=== PATIENT | female | born 1945 | race Caucasian/White ===

== ENCOUNTER 2017-10-17 11:42 | Outpatient (CLI) | payer MEDICARE | END 2017-10-17 11:43 | disposition home or self-care (01) | LOC: BICMAMMO 11:42 | PROVIDERS: ATTEND Family Medicine | DX: Z12.31 Encounter for screening mammogram for malignant neoplasm of breast (principal); Z80.3 Family history of malignant neoplasm of breast | CPT/HCPCS: 77063; 77067 ==

== ENCOUNTER 2018-10-18 10:28 | Outpatient (CLI) | payer MEDICARE | END 2018-10-18 10:29 | disposition home or self-care (01) | LOC: BICMAMMO 10:28 | PROVIDERS: ATTEND Family Medicine | DX: Z12.31 Encounter for screening mammogram for malignant neoplasm of breast (principal); R92.1 Mammographic calcification found on diagnostic imaging of breast; Z80.3 Family history of malignant neoplasm of breast | CPT/HCPCS: 77063; 77067 ==

== ENCOUNTER 2019-10-04 08:58 | Outpatient (CLI) | payer MEDICARE ==
[2019-10-04 14:24] LABS: INR-International Normal Ratio 0.9; Prothrombin Time 12.5 SEC (12.0-14.7)
[2019-10-04 14:34] LABS: Bacteria/HPF None Seen HPF (None Seen); Bilirubin 3+ (Negative); Blood, Urine Negative (Negative); Clarity Clear (Clear); Glucose, Urine (Dipstick) Normal (Negative); Leukocyte Negative Leu/uL (Negative); Nitrite Negative (Negative); Protein, Urine (Dipstick) Negative (Neg-Trace); RBC/HPF 0-3 HPF (0-3); Squamous Epithelial 0-3 HPF (0-3); Urobilinogen Normal mg/dL (Less than 2); WBC/HPF 0-3 HPF (0-3)
[2019-10-04 14:36] LABS: Anion Gap 12 mmol/L (10-20); BUN (Urea Nitrogen) 14 mg/dL (9.8-20.1); Calc. Creatinine Clearance 0 mL/min (70-130); Calcium 9.4 mg/dL (7.8-10.44); Carbon Dioxide 24 mmol/L (23-31); Chloride 107 mmol/L (98-107); Estimated GFR-MDRD 55; Glucose 98 mg/dL (83-110); Potassium 4.1 mmol/L (3.5-5.1); Sodium 139 mmol/L (136-145)
--- NOTE | 2019-10-04 16:58 | EKG ---
Test Reason : Blood Pressure : / mmHG Vent. Rate : 058 BPM Atrial Rate : 058 BPM P-R Int : 162 ms QRS Dur : 102 ms QT Int : 454 ms P-R-T Axes : 048 020 077 degrees QTc Int : 445 ms Sinus bradycardia Otherwise normal ECG When compared with ECG of 07-SEP-2016 11:07, No significant change was found Confirmed by DR. Sana CHANG (3) on 10/04/2019 4:58:07 PM Referred By: TERESA Confirmed By:DR. Sana CHANG
== END 2019-10-04 08:59 | disposition home or self-care (01) ==
LOC: LABBT 08:58
PROVIDERS: ATTEND Orthopaedic Surgery
DX: Z01.818 Encounter for other preprocedural examination (principal); M17.11 Unilateral primary osteoarthritis, right knee
CPT/HCPCS: 80048; 81001; 85025; 85610; 87081; 93005; 93010

== ENCOUNTER 2019-10-16 05:33 | Day surgery (SDC) | payer MEDICARE ==
[2019-10-04 12:18] VITALS: BMI 31.7
[2019-10-16] MEDS ORDERED: Clindamycin/D5W 600 mg/50 ml Premix Bag ONE (06:23)
[2019-10-16] MEDS ORDERED: Levofloxacin 500 mg/D5W 100 ml Premix Bag ONE (06:23)
[2019-10-16] MEDS ORDERED: Tranexamic Acid 1,000 MG/10 ML VIAL ONE (06:23)
[2019-10-16] MEDS ORDERED: Sodium Chloride 0.9% 100 ML ONE (06:23)
[2019-10-16] MEDS ORDERED: Vancomycin 1.5 GRAM/300 ML BAG 1.5 GM/300 ML BAG ONE (06:23)
[2019-10-16] MEDS ORDERED: Fentanyl 100 MCG/2 ML VIAL ONE ×5 (06:28→10:17)
[2019-10-16] MEDS ORDERED: Midazolam HCl 2 mg/2 ml Vial ONE (06:29)
[2019-10-16 06:43] LABS: #Eosinphils 0.1 thou/uL (0.0-0.7); #Lymphocytes 1.7 thou/uL (1.20-3.40); #Monocytes 0.6 thou/uL (0.11-0.59); #Neutrophils 4.2 thou/uL (1.40-6.50); %Basophils 0.6 % (0.0-1.0); %Eosinophils 1.2 % (0.0-10.0); %Lymphocytes 25.4 % (21.0-51.0); %Monocytes 9.6 % (0.0-10.0); %Neutrophils 63.2 % (42.0-75.0); Hemoglobin 13.7 g/dL (12.0-16.0); Mean Corpuscular HGB CONC 32.6 g/dL (32.0-36.0); Mean Corpuscular Hemoglobin 28.3 pg (27.0-31.0); Mean Corpuscular Volume 86.8 fL (78.0-98.0); Mean Platelet Volume 7.3 fL (7.4-10.4); Platelet Count 249 thou/uL (130-400); RBC Distribution Width 13.6 % (11.5-14.5); Red Blood Cell (RBC) Count 4.83 mill/uL (4.20-5.40); White Blood Cell (WBC) Count 6.6 thou/uL (4.8-10.8)
[2019-10-16] MEDS ORDERED: Bupivacaine 0.25% HCL 30 ML VIAL ONE ×2 (06:46)
[2019-10-16] MEDS ORDERED: Ropivacaine HCl/PF 250 ML in Premix Bag 1 BAG NERVE BLCK SCH (07:22)
[2019-10-16] MEDS ORDERED: Ondansetron PF 4 MG/2 ML Vial IVP PRN (07:22)
[2019-10-16] MEDS ORDERED: HYDROcodone/Acetaminophen 10/325 mg Tablet PO PRN (07:22)
[2019-10-16] MEDS ORDERED: Zolpidem Tartrate 5 MG TAB PO PRN (07:22)
[2019-10-16] MEDS ORDERED: Acetaminophen 325 MG TAB PO PRN (07:25)
[2019-10-16] MEDS ORDERED: Fentanyl 100 MCG/2 ML VIAL SLOW IVP PRN (07:26)
[2019-10-16] MEDS ORDERED: PROPOFOL 200 MG/20 ML VIAL ONE (09:21)
[2019-10-16] MEDS ORDERED: ePHEDrine/0.9% NaCl/PF SYRINGE 50 mg/10 ml ONE (09:21)
[2019-10-16] MEDS ORDERED: Lidocaine 1% PF 5 ML VIAL ONE (09:21)
[2019-10-16] MEDS ORDERED: Bupivacaine HCl 0.5%/Epinephrine 1:200,000/PF 30 ml Vial ONE (09:21)
[2019-10-16] MEDS ORDERED: Ondansetron PF 4 MG/2 ML Vial ONE (09:21)
[2019-10-16] MEDS ORDERED: Ropivacaine 0.2% HCl/PF (40 MG/20 ML VIAL) ONE (09:21)
[2019-10-16] MEDS ORDERED: Ketorolac Tromethamine 30 MG/ML VIAL ONE (09:24)
--- NOTE | 2019-10-16 09:40 | RAD ---
2 views of the right knee: 10/16/2019 COMPARISON: None HISTORY: Arthroplasty FINDINGS: Postoperative gas and fluid is noted anteriorly. The patient is status post total knee arth roplasty. Femoral and tibial components demonstrate no evidence for hardware complication. Postoperative changes are noted involving the posterior aspect of the right patella. IMPRESSION: Radiographic evidence of recent right total knee arthroplasty.
[2019-10-16] MEDS ORDERED: diphenhydrAMINE 25 MG CAP PO PRN (10:19)
[2019-10-16] MEDS ORDERED: Ketorolac Tromethamine 30 MG/ML VIAL IVP SCH (12:00)
[2019-10-16] MEDS: HYDROcodone/Acetaminophen 10/325 mg Tablet PO PRN ×2 (12:09→17:44)
[2019-10-16] MEDS ORDERED: CLOTRIMAZOLE TOP PRN (12:16)
[2019-10-16] MEDS ORDERED: ZINC TOP PRN (12:16)
[2019-10-16] MEDS ORDERED: BETAMETH DIP TOP PRN (12:16)
[2019-10-16] MEDS: Sodium Chloride 0.9% 1,000 ML IV SCH ×2 (12:17→21:55)
--- NOTE | 2019-10-16 12:41 | HP ---
CHIEF COMPLAINT: Right knee pain. HISTORY OF PRESENT ILLNESS: Ms. Vaz is a 73-year-old female, who presents for right total knee arthroplasty. The patient has a previous history of conservative management with injections, discussed weight reduction, anti-inflammatories. She is 6 weeks from previous knee injection. The patient continues to have pain, limits her ability to walk. The patient desired to have a right total knee arthroplasty. PAST MEDICAL HISTORY: Includes cystitis, cholesterol, high blood pressure, arthritis, ulnar dystrophy, chronic pain, fibromyalgia, hiatal hernia, diverticulitis, coronary artery disease. PAST SURGICAL HISTORY: Appendectomy, cholecystectomy, hysterectomy surgery, colonoscopy, bladder surgery, left pneumothorax, previous cardiac catheterization, stents x2, by Dr. Gregory. ALLERGIES: INCLUDE PENICILLIN, ATORVASTATIN, CIPROFLOXACIN, DRONEDARONE, METRONIDAZOLE, PREDNISONE, ROSUVASTATIN, TRAMADOL. MEDICATIONS: Include; 1. Alirocumab. 2. Amlodipine. 3. Aspirin. 4. Calcium carbonate. 5. Simethicone. 6. Clotrimazole/Betameth [place]. 7. Dexilant. 8. Estradiol. 9. Etodolac. 10. Hydrocodone. 11. Lidocaine patches. 12. Metoprolol. 13. Myrbetriq. 14. Nystatin/Triamcin. 15. Pentosan. 16. Trazodone. 17. Trazodone. SOCIAL HISTORY: The patient is a former smoker, stopped in 1989. Occasional alcohol drinker. The patient is currently retired. PHYSICAL EXAMINATION: GENERAL: Alert and oriented female, in no acute distress, resting comfortably in bed. EXTREMITIES: The patient's right lower extremity, 0 to 120, neurovascularly intact, brisk cap refill retropatellar crepitus, mediolateral pain. DIAGNOSTIC STUDIES: X-ray showed retropatellar osteophytosis with varus angulation. She does have right knee osteoarthritis. ASSESSMENT AND PLAN: The patient will be taken to the operating room for right total knee arthroplasty. The patient will receive preoperative antibiotics, will be n.p.o., will receive TXA. Discussed risks and benefits of surgery, pain, scar, bleeding, infection, damage to vital structures, decreased range of motion and strength, need for further surgeries, continued pain despite surgical intervention, loss of life or limb. The patient understood the risks and benefits and elected to proceed, will be taken to the operative suite. Job ID: [id number] [email or web address]
--- NOTE | 2019-10-16 12:49 | OP ---
DATE OF PROCEDURE: 10/16/2019 PREOPERATIVE DIAGNOSIS: Right knee osteoarthritis. POSTOPERATIVE DIAGNOSIS: Right knee osteoarthritis. PROCEDURE PERFORMED: Right total knee arthroplasty. SOCIAL MEDIA MARKETING MANAGER: Joie. ANESTHESIOLOGIST: Dr. Lincoln. ANESTHESIA: The patient received LMA with adductor canal, single shot sciatic. ESTIMATED BLOOD LOSS: 100 mL. TOURNIQUET TIME: 75 minutes at 300 mmHg. The patient received TXA 1 g, Ancef 2 g, vancomycin 1.5 g. The patient had Chika Triathlon size 3 tibial base plate, A29 asymmetric patella, X3 tibial 9 mm CS poly insert and CR size 4 retaining femur. COMPLICATIONS: None. HISTORY OF PRESENT ILLNESS: Ms. Vaz is a 73-year-old female with right knee pain for multiple years. The patient has failed conservative measures including injections, anti-inflammatories, continued pain despite conservative management. I discussed with the patient's the risks and benefits of right total knee arthroplasty to include pain, scar, bleeding, infection, damage to vital structures, decreased range of motion and strength, fracture below or above the stem, need for further surgeries, loss of life or limb. The patient understood the risks and benefits of the procedure and elected to proceed. DESCRIPTION OF PROCEDURE: Time-out was performed designating the patient's right lower extremity as the operative site based on site, consents, marking. After time-out, the patient's right lower extremity was prepped and draped in sterile fashion. After time-out was performed, the patient's right extremity had tourniquet brought up and left up for 75 minutes. Anterior midline approach, medial patellar arthrotomy was performed. We everted the patella, excised the fat pad and did our medial soft tissue release, after everting the patella completely and flexing the knee, we pinned the femur, cut it at 10, 10, 5 degrees anterior slope, 0 degrees varus valgus. We removed the osteophytes and moved to the tibia. Pinned our guide measured a 4 and cut the chamfer and anterior/posterior cuts for a size 4. We had released ACL, placed our retractors in position pinned our tibial marker, mapped and cut in 3, 5, and 4 degrees of posterior slope, removed osteophytes, placed lamina silk screen printer helper, removed the medial and lateral menisci, removed osteophytes, decompressed the PCL and ACL. We then pinned our tibial tray into position, medializing it and lateralizing femur. The patient was slightly rotationally off based on our previous chamfer cuts and our block cuts, therefore, we floated the tibia, which we pinned into position. Once happy with the alignment of the tibia, overall position of the implants that we pinned into position, had good flexion-extension arc, good varus-valgus and anterior-posterior drawer, mid flexion stability, with a 9 poly , we then everted the patella, cut it down from about 24 down to 13 and placed A29 patella, which tracked, everted, drilled our lugs for femur, cut our keel for tibia, removed all implants, washed the joint and rasped in posteromedial aspect, it was just a little tight in flexion. Overall, I liked tracking and alignment, and we removed all the implants, washed, cemented our tibia, placed our poly, after removing our excess cement, cemented our femur, removed excess cement, extended the femur, cemented our patella, removed excess cement, brought the knee back into flexion, washed, cleaned out all the joint to ensure there was no other particulate debris, washed the joint out, went back and closed the arthrotomy with #2-2 Stratafix and glue. The patient will be weightbearing as tolerated. She will be followed up in- house, she will follow [facility] protocol. Job ID: [id number] [facility]
[2019-10-16] MEDS: Ketorolac Tromethamine 30 MG/ML VIAL IVP SCH ×2 (15:34→21:38)
[2019-10-16] MEDS: CEFAZOLIN 2 GM in Premix Bag 1 BAG IVPB SCH ×2 (15:37→21:38)
[2019-10-16] MEDS ORDERED: Vancomycin 1.5 GRAM/300 ML BAG 1.5 GM in Premix Bag 1 BAG IVPB SCH (18:00)
[2019-10-16] MEDS ORDERED: Nystatin/Triamcinolone Cream 15 GM TUBE TOP SCH ×2 (21:00)
[2019-10-16] MEDS: Amlodipine 10 MG TAB PO SCH (21:37)
[2019-10-16] MEDS: traZODone HCl 150 MG TAB PO SCH (21:37)
[2019-10-17] MEDS: Ketorolac Tromethamine 30 MG/ML VIAL IVP SCH ×4 (03:33→17:17)
[2019-10-17 05:01] LABS: Hemoglobin 11.4 g/dL (12.0-16.0); Mean Corpuscular HGB CONC 32.9 g/dL (32.0-36.0); Mean Corpuscular Hemoglobin 28.7 pg (27.0-31.0); Mean Corpuscular Volume 87.1 fL (78.0-98.0); Mean Platelet Volume 6.6 fL (7.4-10.4); Platelet Count 201 thou/uL (130-400); RBC Distribution Width 13.3 % (11.5-14.5); Red Blood Cell (RBC) Count 3.97 mill/uL (4.20-5.40); White Blood Cell (WBC) Count 8.7 thou/uL (4.8-10.8)
[2019-10-17] MEDS: HYDROcodone/Acetaminophen 10/325 mg Tablet PO PRN ×4 (05:24→20:12)
[2019-10-17] MEDS: Sodium Chloride 0.9% 1,000 ML IV SCH ×2 (06:18→16:30)
[2019-10-17] MEDS ORDERED: PENTOSAN POLYSULFATE SODIUM PO SCH (09:00)
[2019-10-17] MEDS: Aspirin 325 MG TAB PO SCH (09:15)
[2019-10-17] MEDS: Ferrous Gluconate 324 MG TAB PO SCH ×2 (09:15→20:13)
[2019-10-17] MEDS: Multivitamin W/ Minerals 1 TAB PO SCH (09:16)
[2019-10-17] MEDS: Senokot S 8.6-50 MG TAB PO SCH ×2 (09:16→20:12)
[2019-10-17] MEDS: Estradiol 1 MG TAB PO SCH (09:16)
[2019-10-17] MEDS: Promethazine HCl 25 MG/ML VIAL IM PRN (12:30)
--- NOTE | 2019-10-17 19:05 | PDOC.HOSPP ---
- Subjective Encounter Date: 10/17/19 Encounter Time: 15:00 Subjective: f/u s/p R TKA POD #1. Some pain in R knee but mobilizing with PT. No CP, SOB. - Objective Vital Signs & Weight: Vital Signs (12 hours) Temp Pulse Resp BP BP Pulse Ox 10/17/19 15:35 98.8 F 58 L 16 155/76 H 96 10/17/19 07:55 98.4 F 57 L 16 138/77 96 Weight Admit Weight 209 lb Weight 209 lb I&O: 10/16/19 10/17/19 10/18/19 06:59 06:59 06:59 Intake Total 3360 1200 Output Total 4400 Balance -1040 1200 Result Diagrams: 10/17/19 04:52 Additional Labs: Laboratory Tests 10/04/19 10/16/19 13:11 06:14 WBC 6.6 Hgb 13.7 Hct 41.9 Plt Count 249 Sodium 139 Potassium 4.1 Chloride 107 Carbon Dioxide 24 Anion Gap 12 BUN 14 Creatinine 0.99 Estimated GFR (MDRD) 55 Glucose 98 Hospitalist ROS - Medication Medications: Active Medications Generic Name Dose Route Start Last Admin Trade Name Freq PRN Reason Stop Dose Admin Hydrocodone Bitart/Acetaminophen 2 tab 10/16/19 07:22 10/17/19 15:42 [place] 10/325 PO 2 tab Q4H PRN Administration PAIN (4-6) Amlodipine Besylate 10 mg 10/16/19 21:00 10/16/19 21:37 Norvasc PO 10 mg HS MARIO Administration Aspirin 325 mg 10/17/19 09:00 10/17/19 09:15 Aspirin PO 325 mg DAILY MARIO Administration Estradiol 1 mg 10/17/19 09:00 10/17/19 09:16 Estrace PO 1 mg DAILY MARIO Administration Ferrous Gluconate 324 mg 10/17/19 09:00 10/17/19 09:15 Fergon PO 324 mg BID MARIO Administration Ropivacaine 250 ml/ Device 250 mls @ 10 mls/hr 10/16/19 07:22 10/17/19 12:27 NERVE BLCK 10/19/19 07:21 250 mls INF MARIO Administration As Directed Sodium Chloride 1,000 mls @ 100 mls/hr 10/16/19 10:19 10/17/19 16:30 Normal Saline 0.9% IV Not Given .Q10H MARIO Iron/Minerals/Multivitamins 1 tab 10/17/19 09:00 10/17/19 09:16 Theragran M PO 1 tab DAILY MARIO Administration Metoprolol Succinate 100 mg 10/17/19 09:00 10/17/19 09:15 Toprol Xl PO Not Given DAILY MARIO Mirabegron 50 mg 10/17/19 09:00 10/17/19 09:15 Myrbetriq Er PO 50 mg DAILY MARIO Administration Ondansetron HCl 4 mg 10/16/19 07:22 10/17/19 09:11 Zofran IVP 4 mg Q6H PRN Administration Nausea/Vomiting Pantoprazole Sodium 40 mg 10/17/19 09:00 10/17/19 09:15 Protonix PO 40 mg DAILY MARIO Administration Promethazine HCl 12.5 mg 10/16/19 07:22 10/17/19 12:30 Phenergan IM 12.5 mg Q4H PRN Administration Nausea Senna/Docusate Sodium 2 tab 10/17/19 09:00 10/17/19 09:16 Senokot S PO 2 tab BID MARIO Administration Trazodone HCl 150 mg 10/16/19 21:00 10/16/19 21:37 Desyrel PO 150 mg HS MARIO Administration - Exam General Appearance: NAD, awake alert Eye: PERRL, anicteric sclera ENT: normocephalic atraumatic, no oropharyngeal lesions Neck: supple, symmetric, no JVD, no thyromegaly Heart: RRR, no gallops, no rubs, normal peripheral pulses Respiratory: CTAB, no wheezes, no rales, no ronchi, normal chest expansion Gastrointestinal: soft, non-tender, non-distended, normal bowel sounds, no palpable masses Extremities: no cyanosis, no clubbing Extremities - other findings: R knee with surgical dressing, BLANQUITA wrap in place Skin: normal turgor, no lesions Neurological: cranial nerve grossly intact, no new deficit Musculoskeletal: normal tone Psychiatric: normal affect, A&O x 3 Hosp A/P (1) HTN (hypertension) Code(s): I10 - ESSENTIAL (PRIMARY) HYPERTENSION Status: Chronic Qualifiers: Hypertension type: essential hypertension Qualified Code(s): I10 - Essential (primary) hypertension Plan: Continue Metoprolol and Amlodipine (2) CAD (coronary artery disease) Code(s): I25.10 - ATHSCL HEART DISEASE OF [place] CORONARY ARTERY W/O ANG PCTRS Status: Chronic Plan: Chronic, stable, ASA, Metoprolol (3) HLD (hyperlipidemia) Code(s): E78.5 - HYPERLIPIDEMIA, UNSPECIFIED Status: Chronic (4) Osteoarthritis Code(s): M19.90 - UNSPECIFIED OSTEOARTHRITIS, UNSPECIFIED SITE Status: Chronic (5) Status post total knee replacement Code(s): Z96.659 - PRESENCE OF UNSPECIFIED ARTIFICIAL KNEE JOINT Status: Acute Qualifiers: Laterality: right Qualified Code(s): Z96.651 - Presence of right artificial knee joint Plan: POD #1, pain control, ASA, DVT ppx, OOB with PT - Plan PT/OT, manager social work, out of bed/ambulate, DVT proph w/SCDs Stable overall Continue home Metoprolol and Amlodipine ASA 325mg daily OOB with PT/OT Pain control as clinically inidcated AM lab: CBC
[2019-10-17] MEDS: Amlodipine 10 MG TAB PO SCH (20:12)
[2019-10-17] MEDS: traZODone HCl 150 MG TAB PO SCH (20:13)
[2019-10-18] MEDS: HYDROcodone/Acetaminophen 10/325 mg Tablet PO PRN ×3 (03:28→12:51)
[2019-10-18] MEDS: Promethazine HCl 25 MG/ML VIAL IM PRN ×2 (04:05→12:52)
[2019-10-18] MEDS: Sodium Chloride 0.9% 1,000 ML IV SCH ×2 (04:33→08:28)
[2019-10-18 05:15] LABS: Hemoglobin 10.6 g/dL (12.0-16.0); Mean Corpuscular HGB CONC 32.7 g/dL (32.0-36.0); Mean Corpuscular Hemoglobin 28.4 pg (27.0-31.0); Mean Platelet Volume 6.9 fL (7.4-10.4); Platelet Count 181 thou/uL (130-400); RBC Distribution Width 13.4 % (11.5-14.5); Red Blood Cell (RBC) Count 3.73 mill/uL (4.20-5.40); White Blood Cell (WBC) Count 7.8 thou/uL (4.8-10.8)
[2019-10-18] MEDS: Estradiol 1 MG TAB PO SCH (08:26)
[2019-10-18] MEDS: Senokot S 8.6-50 MG TAB PO SCH (08:26)
[2019-10-18] MEDS: Ferrous Gluconate 324 MG TAB PO SCH (08:26)
[2019-10-18] MEDS: Multivitamin W/ Minerals 1 TAB PO SCH (08:26)
[2019-10-18] MEDS: Aspirin 325 MG TAB PO SCH (08:26)
[2019-10-18] MEDS ORDERED: Ondansetron ODT 4 MG TAB PO PRN (09:00)
[2019-10-18 11:57] VITALS: BP 128/66; TEMP 98.8
== END 2019-10-18 15:02 | disposition home or self-care (01) ==
LOC: SDC 05:33 → SURG A 11:00 → SDC 10-18 15:02
PROVIDERS: ATTEND Orthopaedic Surgery
PROC: 0SRC0J9 Replacement of Right Knee Joint with Synthetic Substitute, Cemented, Open Approach (ICD-10-PCS; principal; 2019-10-16)
PROC: 3E0T3BZ Introduction of Anesthetic Agent into Peripheral Nerves and Plexi, Percutaneous Approach (ICD-10-PCS; 2019-10-16)
PROC: 3E0T3BZ Introduction of Anesthetic Agent into Peripheral Nerves and Plexi, Percutaneous Approach (ICD-10-PCS; 2019-10-16)
DX: M17.11 Unilateral primary osteoarthritis, right knee (principal); G89.18 Other acute postprocedural pain; I10 Essential (primary) hypertension; M79.7 Fibromyalgia; I25.10 Atherosclerotic heart disease of native coronary artery without angina pectoris; Z87.891 Personal history of nicotine dependence; Z79.82 Long term (current) use of aspirin; Z79.899 Other long term (current) drug therapy; Z88.0 Allergy status to penicillin; Z88.1 Allergy status to other antibiotic agents; Z88.5 Allergy status to narcotic agent; Z88.8 Allergy status to other drugs, medicaments and biological substances; Z95.5 Presence of coronary angioplasty implant and graft
CPT/HCPCS: 27447; 64445; 64447; 73560; 85025; 85027; 97110; 97116 ×3; 97139 ×2; 97150 ×2; 97530 ×2; 98960; 98961; C1713; C1776; 36415; J0670; J0690; J1885; J1956; J2001; J2250; J2405; J2550; J2704; J2795; J3010; J3490; Q0162; S0020

== ENCOUNTER 2019-12-06 11:29 | Outpatient (CLI) | payer MEDICARE ==
--- NOTE | 2019-12-06 13:49 | MMO ---
Bilateral MAMMO Bilat Screen [facility]. CLINICAL HISTORY: Patient is 74 years old and is seen for screening. The patient has the following family history of breast cancer: sister, at age 50, malignant (generic). The patient has no personal history of cancer. VIEWS: The views performed were: bilateral craniocaudal with tomosynthesis and bilateral mediolateral oblique with tomosynthesis. FILMS COMPARED: The present examination has been compared to prior imaging studies performed at [facility] on 09/20/2015, 10/15/2016, 10/17/2017 and 10/18/2018. This study has been interpreted with the assistance of computer-aided detection. MAMMOGRAM FINDINGS: There are scattered fibroglandular densities. Benign calcifications are noted bilaterally. There are no suspicious masses, suspicious calcifications, or new areas of architectural distortion. IMPRESSION: THERE IS NO MAMMOGRAPHIC EVIDENCE OF MALIGNANCY. A ROUTINE FOLLOW-UP MAMMOGRAM IN 1 YEAR IS RECOMMENDED. THE RESULTS OF THIS EXAM WERE SENT TO THE PATIENT. ACR BI-RADS Category 2 - Benign finding MAMMOGRAPHY NOTE: 1. A negative mammogram report should not delay a biopsy if a dominant of clinically suspicious mass is present. 2. Approximately 10% to 15% of breast cancers are not detected by mammography. 3. Adenosis and dense breasts may obscure an underlying neoplasm. Reported by: PA MACARIO MD Electonically Signed: [id number]
== END 2019-12-06 11:30 | disposition home or self-care (01) ==
LOC: BICMAMMO 11:29
PROVIDERS: ATTEND Family Medicine
DX: Z12.31 Encounter for screening mammogram for malignant neoplasm of breast (principal); Z80.3 Family history of malignant neoplasm of breast
CPT/HCPCS: 77063; 77067

== ENCOUNTER 2020-12-11 11:25 | Outpatient (CLI) | payer MEDICARE | END 2020-12-11 11:26 | disposition home or self-care (01) | LOC: BICMAMMO 11:25 | PROVIDERS: ATTEND Family Medicine | DX: Z12.31 Encounter for screening mammogram for malignant neoplasm of breast (principal); Z80.3 Family history of malignant neoplasm of breast | CPT/HCPCS: 77063; 77067 ==

== ENCOUNTER 2022-04-20 15:42 | Outpatient (CLI) | payer MEDICARE | END 2022-04-20 15:43 | disposition home or self-care (01) | LOC: RAD-FRANK 15:42 | PROVIDERS: ATTEND Nurse Practitioner Family | DX: M25.552 Pain in left hip (principal); M16.12 Unilateral primary osteoarthritis, left hip ==

== ENCOUNTER 2022-08-19 10:48 | Outpatient (CLI) | payer MEDICARE | END 2022-08-19 10:49 | disposition home or self-care (01) | LOC: RAD-FRANK 10:48 | PROVIDERS: ATTEND Nurse Practitioner Family | DX: M79.9 Soft tissue disorder, unspecified (principal); M47.812 Spondylosis without myelopathy or radiculopathy, cervical region | CPT/HCPCS: 72040 ==

== ENCOUNTER 2023-05-17 10:19 | Outpatient (CLI) | payer MEDICARE | END 2023-05-17 10:20 | disposition home or self-care (01) | LOC: ULT 10:19 | PROVIDERS: ATTEND Family Medicine | DX: N28.89 Other specified disorders of kidney and ureter (principal); N28.1 Cyst of kidney, acquired | CPT/HCPCS: 76770 ==

== ENCOUNTER 2023-07-20 06:50 | Observation (INO) | payer MEDICARE ==
[2023-07-20] MEDS ORDERED: EPINEPHrine 1 MG/ML AMP ONE (12:49)
[2023-07-20] MEDS ORDERED: Methylene Blue 50 MG/10 ML AMPUL ONE (12:49)
[2023-07-20] MEDS ORDERED: Lidocaine 2% PF 5 ML VIAL ONE (12:49)
[2023-07-20] MEDS ORDERED: Bupivacaine 0.25% HCL 30 ML VIAL ONE (12:49)
[2023-07-20] MEDS ORDERED: fentaNYL PF 100 MCG/2 ML SYRINGE ONE (12:52)
[2023-07-20] MEDS ORDERED: CEFAZOLIN 2 GM VIAL ONE (13:16)
[2023-07-20] MEDS ORDERED: Sodium Chloride 0.9% 100 ML ONE (13:16)
[2023-07-20] MEDS ORDERED: Lidocaine 1% PF 5 ML VIAL ONE (13:31)
[2023-07-20] MEDS ORDERED: Dexamethasone 20 MG/5 ML VIAL ONE (13:31)
[2023-07-20] MEDS ORDERED: PROPOFOL 200 MG/20 ML VIAL ONE (13:31)
[2023-07-20] MEDS ORDERED: Ondansetron PF 4 MG/2 ML Vial ONE (13:31)
[2023-07-20] MEDS ORDERED: Labetalol HCl 100 MG/20 ML VIAL ONE (14:20)
[2023-07-20] MEDS ORDERED: Esmolol 100 MG/10 ML VIAL ONE (14:33)
[2023-07-20] MEDS ORDERED: dilTIAZem 25 MG/5 ML VIAL ONE (14:58)
[2023-07-20 15:25] LABS: #Eosinphils 0.1 thou/uL (0.0-0.7); #Monocytes 0.4 thou/uL (0.11-0.59); #Neutrophils 4.8 thou/uL (1.40-6.50); %Basophils 0.4 % (0.0-1.0); %Eosinophils 0.9 % (0.0-10.0); %Lymphocytes 22.9 % (21.0-51.0); %Monocytes 5.7 % (0.0-10.0); %Neutrophils 69.8 % (42.0-75.0); Hematocrit 43.8 % (36.0-47.0); Mean Corpuscular Hemoglobin 30.1 pg (27.0-31.0); Mean Corpuscular Volume 94.2 fl (78.0-98.0); Mean Platelet Volume 8.7 fL (7.4-10.4); Platelet Count 198 10x3/uL (130-400); RBC Distribution Width 13.9 % (11.5-14.5); Red Blood Cell (RBC) Count 4.65 mill/uL (4.20-5.40); White Blood Cell (WBC) Count 6.9 10x3/uL (4.8-10.8)
[2023-07-20 15:46] LABS: Anion Gap 14 mmol/L (10-20); BUN (Urea Nitrogen) 11 mg/dL (9.8-20.1); Calc. Creatinine Clearance 69 mL/min (70-130); Calcium 9.4 mg/dL (7.8-10.44); Carbon Dioxide 24 mmol/L (23-31); Chloride 106 mmol/L (98-107); Estimated GFR 63; Glucose 109 mg/dL (83-110); Sodium 140 mmol/L (136-145)
[2023-07-20 15:52] LABS: Troponin I Less than 0.010 ng/mL (< 0.028)
[2023-07-20] MEDS ORDERED: dilTIAZem 125 MG, Admixture Fee 1 EACH in Sodium Chloride 0.9% 100 ML IVPB SCH (17:45)
[2023-07-20] MEDS ORDERED: Acetaminophen 325 MG TAB PO PRN (18:23)
[2023-07-20] MEDS ORDERED: Ondansetron PF 4 MG/2 ML Vial IVP PRN (18:23)
[2023-07-20] MEDS ORDERED: Ondansetron ODT 4 MG TAB PO PRN (18:23)
[2023-07-20 18:39] LABS: Magnesium 2.1 mg/dL (1.6-2.6)
[2023-07-20] MEDS ORDERED: traZODone HCl 50 MG TAB PO PRN (18:51)
[2023-07-20] MEDS ORDERED: ELETRIPTAN HBR 40 MG PO PRN (18:51)
[2023-07-20] MEDS ORDERED: Calcium Carbonate 500 MG ChewTAB PO PRN (19:10)
[2023-07-20 20:28] LABS: Troponin I Less than 0.010 ng/mL (< 0.028)
[2023-07-20] MEDS: Gabapentin 300 MG CAP PO SCH (20:41)
[2023-07-20 20:49] VITALS: BMI 29.7
[2023-07-20] MEDS ORDERED: Rivaroxaban 10 MG TAB PO SCH (21:00)
[2023-07-20] MEDS ORDERED: Amlodipine 5 MG TAB PO SCH (21:00)
[2023-07-20] MEDS: HYDROcodone/Acetaminophen 5/325 mg Tablet PO PRN (21:05)
[2023-07-20 22:57] LABS: Troponin I Less than 0.010 ng/mL (< 0.028)
[2023-07-21] MEDS: HYDROcodone/Acetaminophen 5/325 mg Tablet PO PRN (03:43)
[2023-07-21 04:43] LABS: #Monocytes 0.4 thou/uL (0.11-0.59); %Lymphocytes 11.4 % (21.0-51.0); %Monocytes 4.8 % (0.0-10.0); %Neutrophils 83.4 % (42.0-75.0); Hematocrit 41.7 % (36.0-47.0); Hemoglobin 13.8 g/dL (12.0-16.0); Mean Corpuscular HGB CONC 33.1 g/dL (32.0-36.0); Mean Corpuscular Hemoglobin 30.5 pg (27.0-31.0); Mean Corpuscular Volume 92.3 fl (78.0-98.0); Mean Platelet Volume 8.8 fL (7.4-10.4); Platelet Count 219 10x3/uL (130-400); Red Blood Cell (RBC) Count 4.52 mill/uL (4.20-5.40); White Blood Cell (WBC) Count 8.4 10x3/uL (4.8-10.8)
[2023-07-21 05:09] LABS: Anion Gap 12 mmol/L (10-20); BUN (Urea Nitrogen) 11 mg/dL (9.8-20.1); Calc. Creatinine Clearance 88 mL/min (70-130); Calcium 9.2 mg/dL (7.8-10.44); Carbon Dioxide 24 mmol/L (23-31); Chloride 104 mmol/L (98-107); Estimated GFR 83; Glucose 117 mg/dL (83-110); Potassium 3.8 mmol/L (3.5-5.1); Sodium 136 mmol/L (136-145)
[2023-07-21] MEDS: Gabapentin 300 MG CAP PO SCH (08:11)
[2023-07-21] MEDS ORDERED: Sertraline 25 MG TAB PO SCH (09:00)
[2023-07-21] MEDS ORDERED: Estradiol 1 MG TAB PO SCH (09:00)
[2023-07-21 11:41] VITALS: BP 172/85; TEMP 98.1
[2023-07-21] MEDS ORDERED: Rivaroxaban 10 MG TAB PO SCH (21:00)
== END 2023-07-21 14:05 | disposition home or self-care (01) ==
LOC: SDC 06:50 → 2SW 17:48
PROVIDERS: ADMIT Internal Medicine; ATTEND Family Medicine
PROC: 0HBU0ZZ Excision of Left Breast, Open Approach (ICD-10-PCS; principal; 2023-07-20)
DX: N63.20 Unspecified lump in the left breast, unspecified quadrant (principal); I48.0 Paroxysmal atrial fibrillation; I10 Essential (primary) hypertension; M79.7 Fibromyalgia; I25.10 Atherosclerotic heart disease of native coronary artery without angina pectoris; Z79.899 Other long term (current) drug therapy; Z79.01 Long term (current) use of anticoagulants; Z88.0 Allergy status to penicillin; Z88.5 Allergy status to narcotic agent; Z88.8 Allergy status to other drugs, medicaments and biological substances; Z88.1 Allergy status to other antibiotic agents
CPT/HCPCS: 19281; 36415; 76098; 80048; 83735; 84484; 85025; 88307; 93005; 93010; J0171; J1100; J2001; J2405; J2704; J3490; Q9968; S0020